=== PATIENT | male | born 1960 | race Caucasian/White ===

== ENCOUNTER 2019-10-12 13:23 | Emergency (ER) | payer BC ==
--- NOTE | 2019-10-12 15:55 | RAD REPORT ---
EXAM DESCRIPTION: CTAbdomen Pelvis W Contrast - 10/12/2019 3:41 pm CLINICAL HISTORY: Abdominal pain. swelling to right, lateral abd;Abd pain COMPARISON: No comparisons TECHNIQUE: Biphasic CT imaging of the abdomen and pelvis was performed with 100 ml non-ionic IV cont rast. All CT scans are performed using dose optimization technique as appropriate and may include automated exposure control or mA/KV adjustment according to patient size. FINDINGS: The lung bases are clear.Small stomach diverticulum along the fundus of the stomach. The liver, spleen, pancreas, adrenal glands and kidneys are within normal limits. 3 cm duodenal diver ticulum noted. 2 cm right renal cyst. No bowel obstruction, free air, free fluid or abscess. The appendix is normal. Postsurgical changes in the left inguinal region with small fat containing left inguinal hernia. No evidence of significan t lymphadenopathy. Lumbosacral degenerative changes. IMPRESSION: No acute intra-abdominal or pelvic finding.
--- NOTE | 2019-10-12 16:12 | EDPHYS ---
Physician Documentation [facility] Name: Jose Alvarez Age: 59 yrs Sex: Male : 1960 Arrival Date: 10/12/2019 Time: 13:25 Bed 14 Private MD: ED Physician Eliazar Ramsey HPI: 10/12 15:00 This 59 yrs old Male presents to ER via Ambulatory with complaints of kb Abdominal Swelling. 15:00 The patient presents with abdominal pain right lateral abd. Onset: The symptoms/episode kb began/occurred 3 day(s) ago. The symptoms do not radiate. Associated signs and symptoms: none. The symptoms are described as constant. Modifying factors: The symptoms are alleviated by nothing, the symptoms are aggravated by nothing. Severity of pain: At its worst the pain was moderate in the emergency department the pain is unchanged. The patient has not experienced similar symptoms in the past. The patient has not recently seen a physician. Pt reports right lateral abd pain for 3 days, this morning the area is swollen. Denies tenderness, fever, n/v. States he has intermittent diarrhea due to metformin. . Historical: - Allergies: 13:41 No Known Allergies; aj1 - Home Meds: 13:41 Metformin Oral [Active]; glambie [Active]; aj1 - PMHx: 13:41 Diabetes - NIDDM; aj1 - Immunization history:: Flu vaccine is not up to date. - Social history:: Smoking status: Patient/guardian denies using tobacco. - Ebola Screening: : Patient denies travel to an Ebola-affected area in the 21 days before illness onset. ROS: 14:59 Constitutional: Negative for fever, chills, and weight loss, Neck: Negative for injury, kb pain, and swelling, Cardiovascular: Negative for chest pain, palpitations, and edema, Respiratory: Negative for shortness of breath, cough, wheezing, and pleuritic chest pain, Back: Negative for injury and pain, : Negative for injury, bleeding, discharge, and swelling, MS/Extremity: Negative for injury and deformity, Skin: Negative for injury, rash, and discoloration, Neuro: Negative for headache, weakness, numbness, tingling, and seizure. 14:59 Abdomen/GI: Positive for abdominal pain, abdominal distension. Exam: 14:59 Constitutional: This is a well developed, well nourished patient who is awake, alert, kb and in no acute distress. Head/Face: Normocephalic, atraumatic. Neck: Trachea midline, no thyromegaly or masses palpated, and no cervical lymphadenopathy. Supple, full range of motion without nuchal rigidity, or vertebral point tenderness. No Meningismus. Chest/axilla: Normal chest wall appearance and motion. Nontender with no deformity. No lesions are appreciated. Cardiovascular: Regular rate and rhythm with a normal S1 and S2. No gallops, murmurs, or rubs. Normal PMI, no JVD. No pulse deficits. Respiratory: Lungs have equal breath sounds bilaterally, clear to auscultation and percussion. No rales, rhonchi or wheezes noted. No increased work of breathing, no retractions or nasal flaring. Back: No spinal tenderness. No costovertebral tenderness. Full range of motion. Skin: Warm, dry with normal turgor. Normal color with no rashes, no lesions, and no evidence of cellulitis. MS/ Extremity: Pulses equal, no cyanosis. Neurovascular intact. Full, normal range of motion. Neuro: Awake and alert, GCS 15, oriented to person, place, time, and situation. Cranial nerves II-XII grossly intact. Motor strength 5/5 in all extremities. Sensory grossly intact. Cerebellar exam normal. Normal gait. 14:59 Abdomen/GI: Inspection: distension, that is moderate, in the anterior aspect of right lateral abdomen, Bowel sounds: normal, in all quadrants, Palpation: abdomen is soft and non-tender, in all quadrants. Vital Signs: 13:41 BP 144 / 89; Pulse 76; Resp 18; Temp 98.3; Pulse Ox 98% on R/A; Weight 95.25 kg (R); aj1 Height 5 ft. 10 in. (177.80 cm) (R); Pain 8/10; 15:05 BP 141 / 76; Pulse 73; Resp 18; Pulse Ox 95% on R/A; ae4 16:34 BP 125 / 66; Pulse 76; Resp 18; Pulse Ox 98% on R/A; ae4 13:41 Body Mass Index 30.13 (95.25 kg, 177.80 cm) aj1 MDM: 13:51 Patient medically screened. kb 14:59 Data reviewed: vital signs, nurses notes. Data interpreted: Pulse oximetry: on room air kb is 98 %. Interpretation: normal. 16:11 Counseling: I had a detailed discussion with the patient and/or guardian regarding: the kb historical points, exam findings, and any diagnostic results supporting the discharge/admit diagnosis, lab results, radiology results, the need for outpatient follow up, a family practitioner, to return to the emergency department if symptoms worsen or persist or if there are any questions or concerns that arise at home. 16:12 ED course: After discussing findings with pt he reports he did have a similar pain in kb the same spot a while back that resolved after muscle relaxers. 10/12 14:37 Order name: Creatinine for Radiology; Complete Time: 15:26 kb 10/12 14:37 Order name: CT Abd/Pelvis - IV Contrast Only; Complete Time: 16:06 kb 10/12 14:37 Order name: IV Start; Complete Time: 15:04 kb Administered Medications: No medications were administered Disposition: 10/12/19 16:11 Discharged to Home. Impression: Unspecified abdominal pain - right lateral pain. - Condition is Stable. - Discharge Instructions: Abdominal Pain, Adult, [id number]. - Prescriptions for Cyclobenzaprine 10 mg Oral Tablet - take 1 tablet by ORAL route every 8 hours As needed; 30 tablet. Diclofenac Sodium 75 mg Oral Tablet, Delayed Release (E.C.) - take 1 tablet by ORAL route 2 times per day As needed; 30 tablet. - Medication Reconciliation Form, Thank You Letter, Antibiotic Education, Prescription Opioid Use, Work release form form. - Follow up: Emergency Department; When: As needed; Reason: Worsening of condition. Follow up: Private Physician; When: 2 - 3 days; Reason: Recheck today's complaints, Continuance of care, Re-evaluation by your physician. Addendum: 10/15/2019 06:44 Co-signature as Attending Physician, Eliazar Ramsey MD I agree with the assessment and c mendez plan of care. Signatures: Dispatcher [employer] EDFlor Ybarra, CORROSION CONTROL FITTER-C CORROSION CONTROL FITTER-Shaylee Dumont, RN RN aj1 Eliazar Ramsey MD MD cha Elliott, Andrea, RN RN ae4 Corrections: (The following items were deleted from the chart) 10/12 16:39 16:11 10/12/2019 16:11 Discharged to Home. Impression: Unspecified abdominal pain - ae4 right lateral pain. Condition is Stable. Forms are Medication Reconciliation Form, Thank You Letter, Antibiotic Education, Prescription Opioid Use. Follow up: Emergency Department; When: As needed; Reason: Worsening of condition. Follow up: Private Physician; When: 2 - 3 days; Reason: Recheck today's complaints, Continuance of care, Re-evaluation by your physician. kb
--- NOTE | 2019-10-12 16:12 | ER ---
Nurse's Notes [facility] Name: Jose Alvarez Age: 59 yrs Sex: Male : 1960 Arrival Date: 10/12/2019 Time: 13:25 Bed 14 Private MD: Diagnosis: Unspecified abdominal pain-right lateral pain Presentation: 10/12 13:39 Presenting complaint: Patient states: Pain to right flank for the last 3 days. Denies aj1 urinary symptoms. Denies fever. Denies N/V. Reports occasional diarrhea. Transition of care: patient was not received from another setting of care. Onset of symptoms was 2018. Risk Assessment: Do you want to hurt yourself or someone else? Patient reports no desire to harm self or others. Initial Sepsis Screen: Does the patient meet any 2 criteria? No. Patient's initial sepsis screen is negative. Does the patient have a suspected source of infection? Yes: Acute abdominal pain. Care prior to arrival: None. 13:39 Method Of Arrival: [facility] 13:39 Acuity: [facility] 3 aj1 Triage Assessment: 13:41 General: Appears in no apparent distress. uncomfortable, Behavior is calm, cooperative, aj1 appropriate for age. Pain: Pain currently is 8 out of 10 on a pain scale. Neuro: Level of Consciousness is awake, alert, obeys commands. Cardiovascular: Patient's skin is warm and dry. Respiratory: Airway is patent Respiratory effort is even, unlabored, Respiratory pattern is regular, symmetrical. GI: Patient currently denies vomiting. Historical: - Allergies: 13:41 No Known Allergies; aj1 - Home Meds: 13:41 Metformin Oral [Active]; glambie [Active]; aj1 - PMHx: 13:41 Diabetes - NIDDM; aj1 - Immunization history:: Flu vaccine is not up to date. - Social history:: Smoking status: Patient/guardian denies using tobacco. - Ebola Screening: : Patient denies travel to an Ebola-affected area in the 21 days before illness onset. Screenin:05 Abuse screen: Denies threats or abuse. Nutritional screening: No deficits noted. ae4 Tuberculosis screening: No symptoms or risk factors identified. Fall Risk None identified. Assessment: 15:07 General: Appears in no apparent distress. comfortable, well groomed, Behavior is calm, ae4 cooperative. Pain: Complains of pain in anterior aspect of right lateral abdomen and posterior aspect of right lateral abdomen. Cardiovascular: 15:07 GI: Bowel sounds present X 4 quads. Abd is soft and non tender X 4 quads. Tenderness to ae4 right side. 15:07 Neuro: Level of Consciousness is awake, alert, obeys commands, Oriented to person, ae4 place, time, situation. 15:07 Respiratory: Airway is patent Respiratory effort is even, unlabored, Respiratory ae4 pattern is regular, symmetrical, Breath sounds are clear bilaterally. GI: Reports diarrhea, Patient reports he has regular diarrhea due to his "metformin". : No signs and/or symptoms were reported regarding the genitourinary system. Denies burning with urination, pain urinary frequency. EENT: Presence of nystagmus, patient states he "was born with it.". Derm: Skin is pink, warm \\T\\ dry. Musculoskeletal: Swelling, protrusion to right latera aspect of abdomen. Swelling. Vital Signs: 13:41 BP 144 / 89; Pulse 76; Resp 18; Temp 98.3; Pulse Ox 98% on R/A; Weight 95.25 kg (R); aj1 Height 5 ft. 10 in. (177.80 cm) (R); Pain 8/10; 15:05 BP 141 / 76; Pulse 73; Resp 18; Pulse Ox 95% on R/A; ae4 16:34 BP 125 / 66; Pulse 76; Resp 18; Pulse Ox 98% on R/A; ae4 13:41 Body Mass Index 30.13 (95.25 kg, 177.80 cm) aj1 ED Course: 13:25 Patient arrived in ED. as 13:40 Triage completed. aj1 13:41 Arm band placed on Patient placed in an exam room. aj1 13:47 Anders Ugalde, EVELIA is Primary Nurse. ae4 13:51 Flor Suarez FNP-C is PHCP. kb 13:51 Eliazar Ramsey MD is Attending Physician. kb 14:30 Inserted saline lock: 18 gauge in right antecubital area, using aseptic technique. ae4 Blood collected. 15:01 Radiology exam delayed due to lab results not completed at this time. (BUN/Creatinine) bq IV insertion attempt and/or patient not having appropriate IV at this time. 15:06 Placed in gown. Bed in low position. Call light in reach. Side rails up X 1. Adult w/ ae4 patient. water pump installer on. Pulse ox on. 15:40 CT completed. Patient tolerated procedure well. Patient moved back from CT. bq 15:41 CT Abd/Pelvis - IV Contrast Only In Process Unspecified. EDMS 16:36 No provider procedures requiring assistance completed. IV discontinued, intact, ae4 bleeding controlled, No redness/swelling at site. Pressure dressing applied. Administered Medications: No medications were administered Outcome: 16:11 Discharge ordered by . kb 16:36 Discharged to home ambulatory. ae4 16:36 Condition: stable 16:36 Discharge instructions given to patient, significant other, Instructed on discharge instructions, follow up and referral plans. Demonstrated understanding of instructions, Prescriptions given X 2. 16:39 Patient left the ED. ae4 Signatures: Dispatcher [employer] EDSD Flor Suarez, TREE KILLER-C NUPUR-Shaylee Dumont RN RN aj1 Neeta Cunha Amelia as Anders Ugalde, EVELIA RN ae4 Corrections: (The following items were deleted from the chart) 18:08 15:07 Neuro: Level of Consciousness is awake, alert, obeys commands, Oriented to ae4 person, place, time, situation, ae4
[2019-10-12 17:38] VITALS: TEMP 98.3
[2019-10-12 17:41] VITALS: BP 125/66; O2SAT 98
== END 2019-10-12 16:39 | disposition home or self-care (01) ==
LOC: ER 13:23
DX: R10.9 Unspecified abdominal pain (principal); E11.9 Type 2 diabetes mellitus without complications
CPT/HCPCS: 36415; 74177; 99285; Q9967

== ENCOUNTER 2023-01-16 07:04 | Inpatient (IN) | payer BC ==
[2023-01-16] MEDS ORDERED: MORPHINE 4 MG/ML SYR ONE (07:24)
[2023-01-16] MEDS ORDERED: FAMOTIDINE 20 MG/2 ML VIAL IV ONE (07:25)
[2023-01-16] MEDS ORDERED: NA CHLORIDE 0.9% 1,000 ML ONE (07:25)
[2023-01-16] MEDS ORDERED: ONDANSETRON 4 MG/2 ML VIAL ONE (07:26)
[2023-01-16 07:45] LABS: Absolute Lymphocytes (CBC) 0.7 K/uL (0.7-4.9); Hematocrit 37.5 % (39.6-49.0); Lymphocytes % 6.3 % (15.3-44.8); MPV 7.3 fL (7.6-11.3); RBC Red Blood Cell Count 4.17 M/uL (4.33-5.43)
[2023-01-16 08:02] LABS: Protime INR 1.11
[2023-01-16 08:09] LABS: Albumin 2.8 g/dL (3.4-5.0); Bilirubin Direct 0.2 mg/dL (0-0.2); Bilirubin Total 0.7 mg/dL (0.2-1.0); Magnesium 2.5 mg/dL (1.6-2.4); Potassium 3.5 mmol/L (3.5-5.1); Protein, Total 7.7 g/dL (6.4-8.2); Troponin High Sensitivity 8.5 pg/mL (<58.9)
--- NOTE | 2023-01-16 08:40 | RAD REPORT ---
EXAM DESCRIPTION: CT - Abdomen Pelvis W Contrast - 01/16/2023 8:27 am CLINICAL HISTORY: Abdominal pain COMPARISON: 2019 TECHNIQUE: Computed axial tomography of the abdomen pelvis was obtained. 100 cc Isovue-300 was admin istered intravenously. Oral contrast was not requested which limits evaluation of bowel and appendix All CT scans are performed using dose optimization technique as appropriate and may include automated exposure control or mA/KV adjustment according to patient size. FINDINGS: Moderate left lower lobe consolidation The liver, spleen, pancreas, adrenal and left kidney unremarkable. 3 centimeter right renal cyst There is no evidence of diverticulitis. Postsurgical changes left inguinal hernia repair. Small gastric diverticulum. Small duodenal divertic ulum IMPRESSION: Left lower lobe consolidation likely pneumonia
--- NOTE | 2023-01-16 08:41 | RAD REPORT ---
EXAM DESCRIPTION: Katia Single View01/16/2023 8:31 am CLINICAL HISTORY: Abdominal pain COMPARISON: 2020 FINDINGS: Left lower lobe opacities Right lung appears clear of acute infiltrate. The heart is normal size IMPRESSION: Left lower lobe opacities likely pneumonia
[2023-01-16 09:00] LABS: Urine Blood 1+ (Negative); Urine Glucose 2+ (Negative); Urine Protein Negative (Negative); Urine Specific Gravity <=1.005 (1.005-1.030); Urine pH 5.5 (5.0-7.0)
[2023-01-16] MEDS ORDERED: NA CHLORIDE 0.9% 750 ML ONE (09:35)
[2023-01-16] MEDS ORDERED: VANCOMYCIN 1 GM/VIAL ONE (09:35)
[2023-01-16] MEDS ORDERED: VANCOMYCIN 500 MG/VIAL ONE (09:35)
[2023-01-16] MEDS ORDERED: AZITHROMYCIN 500 MG INJ IVPB ONE (09:35)
[2023-01-16] MEDS ORDERED: CEFTRIAXONE 2000 MG/VIAL ONE (09:35)
--- NOTE | 2023-01-16 09:47 | RAD REPORT ---
EXAM DESCRIPTION: CT - Head C Spine Mpr Wo Con - 01/16/2023 9:33 am CLINICAL HISTORY: Head and neck pain COMPARISON: None. TECHNIQUE: Computed axial tomography of the head and cervical spine was obtained. Sagittal and coronal reconstruction was performed. All CT scans are performed using dose optimization technique as appropriate and may include automated exposure control or mA/KV adjustment according to patient size. FINDINGS: An intracranial bleed is not seen. The ventricles are normal in caliber. No significant hypodensity within the brain. An extra-axial fluid collection is not noted. Fluid within the visualized sinuses and mastoids is not seen A cervical fracture is not visualized. No dislocation is noted. Spondylosis cervical spine results in mild to moderate multilevel foraminal stenosis. No high-grade c entral spinal stenosis seen. IMPRESSION: No acute intracranial abnormality is seen. A cervical fracture is not visualized. If the patient continues to have symptoms to suggest intracranial /spinal cord/ spinal canal patholog y then MRI would be recommended
--- NOTE | 2023-01-16 12:34 | EKG ---
Test Date: 2023-01-16 Test Time: 07:49:28 Mailer Apprentice: OC MEASUREMENT RESULTS: Intervals: Rate: 81 AR: 156 QRSD: 118 QT: 404 QTc: 469 Floyd: P: 37 AR: 156 QRS: -48 T: 66 INTERPRETIVE STATEMENTS: Normal sinus rhythm Left anterior fascicular block Abnormal ECG Compared to ECG 01/16/2023 07:48:12 Left anterior fascicular block now present Right superior axis no longer present Intraventricular conduction delay no longer present ST (T wave) deviation no longer present Electronically Signed On 01-16-23 12:34:27 BILLING ADMINISTRATOR by Jey Askew
--- NOTE | 2023-01-16 12:52 | ER ---
Nurse's Notes [facility] Name: Jose Alvarez Age: 62 yrs Sex: Male : 1960 Arrival Date: 01/16/2023 Time: 07:10 Bed 18 Private MD: Aaron Bethea T Diagnosis: Fever, unspecified;Headache;Meningitis, unspecified;Pneumonia due to other specified bacteria-left lober lobe pneumonia;Spondylolysis, cervical region Presentation: 01/16 07:38 Chief complaint: Patient states: I have been sick since Monday with a fever of ko1 103.5-104.1 I was having chills and body aches and those stopped on Monday. I went to urgent care and they gave me a zpack and tylenol with codeine, tested me for covid and flu which were both negative. I have a terrible headache and my neck hurts. Coronavirus screen: At this time, the client does not indicate any symptoms associated with coronavirus-19. Ebola Screen: No symptoms or risks identified at this time. Initial Sepsis Screen: Does the patient meet any 2 criteria? No. Patient's initial sepsis screen is negative. Does the patient have a suspected source of infection? No. Patient's initial sepsis screen is negative. Risk Assessment: Do you want to hurt yourself or someone else? Patient reports no desire to harm self or others. Onset of symptoms is unknown. 07:38 Method Of Arrival: Ambulatory ko1 07:38 Acuity: MINH 3 ko1 Triage Assessment: 07:57 General: Appears in no apparent distress. uncomfortable, Behavior is calm, cooperative, ko1 appropriate for age. Pain: Complains of pain in forehead. GI: No deficits noted. Historical: - Allergies: 07:57 No Known Allergies; ko1 - Immunization history:: Adult Immunizations up to date. - Social history:: Smoking status: Patient denies any tobacco usage or history of. Screenin:00 [facility] ED Fall Risk Assessment (Adult) History of falling in the last 3 months, ko1 including since admission No falls in past 3 months (0 pts) Confusion or Disorientation No (0 pts) Intoxicated or Sedated No (0 pts) Impaired Gait No (0 pts) Mobility Assist Device Used No (0 pt) Altered Elimination No (0 pt) Score/Fall Risk Level 0 - 2 = Low Risk Oriented to surroundings, Maintained a safe environment, Educated pt \T\ family on fall prevention, incl call for assistance when getting out of bed, Assessed \T\ reinforced patient's understanding of fall precautions, Provided non-skid footwear, Hourly rounding (assess needs \T\ fall precautionary measures) done, Used ambulatory aids as needed (educated on \T\ assisted with), Used gait belt as appropriate. Abuse screen: Denies threats or abuse. Denies injuries from another. Nutritional screening: No deficits noted. Tuberculosis screening: No symptoms or risk factors identified. Assessment: 07:30 General: Appears in no apparent distress. uncomfortable, Behavior is calm, cooperative, ko1 appropriate for age. Pain: Complains of pain in back of neck. Neuro: No deficits noted. Cardiovascular: No deficits noted. Respiratory: No deficits noted. GI: Bowel sounds present X 4 quads. Abd is soft and non tender X 4 quads. : No deficits noted. EENT: No deficits noted. Derm: No deficits noted. Musculoskeletal: No deficits noted. 12:50 Reassessment: Received report from EVELIA Wong. mb9 13:05 General: Appears in no apparent distress. Behavior is calm, cooperative, appropriate mb9 for age. Pain: Complains of pain in back of neck Aggravated by repositioning. Neuro: Level of Consciousness is awake, alert, obeys commands, Oriented to person, place, time, situation, Appropriate for age. Respiratory: Airway is patent Respiratory effort is even, unlabored, Respiratory pattern is regular, symmetrical. Derm: Skin is pink, warm \T\ dry. Musculoskeletal: Range of motion: intact in all extremities. 15:29 Reassessment: No changes from previously documented assessment. Patient and/or family mb9 updated on plan of care and expected duration. Pain level reassessed. Patient is alert, oriented x 3, equal unlabored respirations, skin warm/dry/pink. Vital Signs: 07:30 BP 131 / 72; Pulse 81; Resp 18; Pulse Ox 99% ; ko1 07:38 BP 131 / 72; Pulse 81; Resp 18; Temp 98.1(O); Pulse Ox 96% on R/A; ko1 08:00 BP 128 / 71; Pulse 80; Resp 18; Pulse Ox 96% ; ko1 13:00 BP 145 / 76; Pulse 78; Resp 16; Pulse Ox 98% on R/A; mb9 14:00 BP 142 / 66; Pulse 81; Resp 18; Pulse Ox 100% ; mb9 15:26 BP 135 / 79; Pulse 78; Resp 16; Pulse Ox 100% ; mb9 ED Course: 07:10 Patient arrived in ED. mr 07:11 Aaron Bethea MD is Private Physician. mr 07:13 Eliazar Ramsey MD is Attending Physician. sharri 07:16 Judith Nixon RN is Primary Nurse. ko1 07:30 Inserted saline lock: 20 gauge in right antecubital area, using aseptic technique. ko1 Blood collected. 07:36 Lipase Sent. ko1 07:36 Basic Metabolic Panel Sent. ko1 07:36 CBC with Diff Sent. ko1 07:37 LFT's Sent. ko1 07:37 Magnesium Sent. ko1 07:37 NT PRO-BNP Sent. ko1 07:37 PT-INR Sent. ko1 07:37 Troponin HS Sent. ko1 07:57 Triage completed. ko1 07:57 Arm band placed on right wrist. ko1 08:00 Patient has correct armband on for positive identification. Placed in gown. Bed in low ko1 position. Call light in reach. Client placed on continuous cardiac and pulse oximetry monitoring. NIBP monitoring applied. ekg monitor on. 09:26 Lactate w/ 2H reflex if indic. Sent. ko1 09:55 Blood Culture Adult (2) Sent. ko1 12:46 Jese Mon MD is Hospitalizing Provider. sharri 18:00 SARS RAPID Sent. mb9 Administered Medications: 07:36 Drug: Zofran (Ondansetron) 4 mg Route: IVP; Site: right antecubital; ko1 07:36 Drug: NS 0.9% 1000 ml Route: IV; Rate: 1 bolus; Site: right antecubital; ko1 07:40 Drug: Pepcid (famotidine) 20 mg Route: IVP; Site: right antecubital; ko1 07:45 Drug: morphine 4 mg Route: IVP; Infused Over: 4 mins; Site: right antecubital; ko1 09:04 Drug: NS 0.9% 1000 ml Route: IV; Rate: 1 bolus; Site: right antecubital; ko1 09:59 Drug: Rocephin (cefTRIAXone) 2 grams Route: IV; Rate: per protocol; Site: right ko1 antecubital; 11:15 Drug: Zithromax (azithromycin) 500 mg Route: IVPB; Infused Over: 1 hrs; Site: right ko1 antecubital; 12:15 Drug: vancoMYCIN 1.5 grams Route: IVPB; Rate: calculated rate; Site: right antecubital; ko1 12:15 Drug: NS 0.9% 1000 ml Route: IV; Rate: 125 ml/hr; Site: right antecubital; ko1 17:58 Drug: Decadron - Dexamethasone 10 mg Route: IVP; Site: right antecubital; mb9 Outcome: 12:52 Decision to Hospitalize by Provider. sharri 21:37 Patient left the ED. mb9 Signatures: Eliazar Ramsey MD MD cha Rivera, Mary mr Oliver, Kathy, RN RN koKatelyn Luke RN RN mb9 Corrections: (The following items were deleted from the chart) 07:57 07:57 PMHx: Diabetes - NIDDM; ko1 ko1
--- NOTE | 2023-01-16 12:52 | EDPHYS ---
Physician Documentation [facility] Name: Jose Alvarez Age: 62 yrs Sex: Male : 1960 Arrival Date: 01/16/2023 Time: 07:10 Bed 18 Private MD: Aaron Bethea T ED Physician Eliazar Ramsey HPI: 01/16 12:40 This 62 yrs old Male presents to ER via Ambulatory with complaints of sharri Abdominal Pain, Stiff Neck. 12:40 The patient or guardian complains of decreased range of motion, pain. The symptoms are sharri located diffusely. Onset: The symptoms/episode began/occurred 3 day(s) ago. Context: The problem was sustained at an unknown location. Associated signs and symptoms: Pertinent positives: fever, headache. The pain does not radiate. Severity of symptoms: At their worst the symptoms were moderate, in the emergency department the symptoms are unchanged. The patient has not experienced similar symptoms in the past. Historical: - Allergies: 07:57 No Known Allergies; ko1 - Immunization history:: Adult Immunizations up to date. - Social history:: Smoking status: Patient denies any tobacco usage or history of. ROS: 12:41 Eyes: Negative for injury, pain, redness, and discharge, ENT: Negative for injury, sharri pain, and discharge, Cardiovascular: Negative for chest pain, palpitations, and edema, Abdomen/GI: Negative for abdominal pain, nausea, vomiting, diarrhea, and constipation, Back: Negative for injury and pain, : Negative for injury, bleeding, discharge, and swelling, MS/Extremity: Negative for injury and deformity, Skin: Negative for injury, rash, and discoloration, Neuro: Negative for headache, weakness, numbness, tingling, and seizure, Psych: Negative for depression, anxiety, suicide ideation, homicidal ideation, and hallucinations, Allergy/Immunology: Negative for hives, rash, and allergies, Endocrine: Negative for neck swelling, polydipsia, polyuria, polyphagia, and marked weight changes, Hematologic/Lymphatic: Negative for swollen nodes, abnormal bleeding, and unusual bruising. 12:41 Constitutional: Positive for body aches, chills, fatigue, fever, malaise. 12:41 Neck: Positive for pain with movement, pain at rest, tenderness. 12:41 Respiratory: Positive for cough, shortness of breath, at rest. Exam: 12:41 Head/Face: Normocephalic, atraumatic. Eyes: Pupils equal round and reactive to light, sharri extra-ocular motions intact. Lids and lashes normal. Conjunctiva and sclera are non-icteric and not injected. Cornea within normal limits. Periorbital areas with no swelling, redness, or edema. Neck: Trachea midline, no thyromegaly or masses palpated, and no cervical lymphadenopathy. Supple, full range of motion without nuchal rigidity, or vertebral point tenderness. No Meningismus. Chest/axilla: Normal chest wall appearance and motion. Nontender with no deformity. No lesions are appreciated. Cardiovascular: Regular rate and rhythm with a normal S1 and S2. No gallops, murmurs, or rubs. Normal PMI, no JVD. No pulse deficits. Respiratory: Lungs have equal breath sounds bilaterally, clear to auscultation and percussion. No rales, rhonchi or wheezes noted. No increased work of breathing, no retractions or nasal flaring. Abdomen/GI: Soft, non-tender, with normal bowel sounds. No distension or tympany. No guarding or rebound. No evidence of tenderness throughout. Back: No spinal tenderness. No costovertebral tenderness. Full range of motion. Male : Normal genitalia with no discharge or lesions. Skin: Warm, dry with normal turgor. Normal color with no rashes, no lesions, and no evidence of cellulitis. MS/ Extremity: Pulses equal, no cyanosis. Neurovascular intact. Full, normal range of motion. Neuro: Awake and alert, GCS 15, oriented to person, place, time, and situation. Cranial nerves II-XII grossly intact. Motor strength 5/5 in all extremities. Sensory grossly intact. Cerebellar exam normal. Normal gait. Psych: Awake, alert, with orientation to person, place and time. Behavior, mood, and affect are within normal limits. 12:41 Cardiovascular: Rate: normal, Rhythm: regular, Pulses: no pulse deficits are appreciated, Heart sounds: normal, Edema: is not appreciated, JVD: is not appreciated. 12:41 ECG was reviewed by the Attending Physician. Vital Signs: 07:30 BP 131 / 72; Pulse 81; Resp 18; Pulse Ox 99% ; ko1 07:38 BP 131 / 72; Pulse 81; Resp 18; Temp 98.1(O); Pulse Ox 96% on R/A; ko1 08:00 BP 128 / 71; Pulse 80; Resp 18; Pulse Ox 96% ; ko1 13:00 BP 145 / 76; Pulse 78; Resp 16; Pulse Ox 98% on R/A; mb9 14:00 BP 142 / 66; Pulse 81; Resp 18; Pulse Ox 100% ; mb9 15:26 BP 135 / 79; Pulse 78; Resp 16; Pulse Ox 100% ; mb9 Procedures: 12:43 Lumbar Puncture: Patient placed in left lateral decubitus position. Collected 20 ml's sharri of clear fluid. Puncture site dressed with band aid, Patient tolerated well. MDM: 07:13 Patient medically screened. sharri 12:43 Antibiotic administration: Rocephin and Zithromax given, vancomycin. Differential sharri diagnosis: bacterial meningitis, Cervical Spondylosis Anemia cervical strain, fracture, Herpes Zoster Neck Contusion. Immunization status: Influenza vaccine: within last 5 years. Data reviewed: vital signs, nurses notes, lab test result(s), EKG, radiologic studies, CT scan, plain films. Consideration of Admission/Observation Patient was admitted/placed on observation. Escalation of care including admission/observation considered. I considered the following discharge prescriptions or medication management in the emergency department Medications were administered in the Emergency Department. See MAR. Test considered but Not performed: CT: ct of chest. Historians other than the Patient: Daughter/Son: son. 01/16 07:15 Order name: Basic Metabolic Panel 01/16 07:15 Order name: CBC with Diff 01/16 07:15 Order name: LFT's [facility] 01/16 07:15 Order name: Magnesium [facility] 01/16 07:15 Order name: NT PRO-BNP [facility] 01/16 07:15 Order name: PT-INR [facility] 01/16 07:15 Order name: Troponin HS [facility] 01/16 07:15 Order name: Lipase [facility] 01/16 07:47 Order name: CBC with Automated Diff; Complete Time: 08:48 EDMS 01/16 08:02 Order name: Protime (+INR); Complete Time: 08:48 EDMS 01/16 08:10 Order name: Basic Metabolic Panel; Complete Time: 08:48 EDMS 01/16 08:10 Order name: Liver (Hepatic) Function; Complete Time: 08:48 EDMS 01/16 08:10 Order name: Troponin High Sensitivity; Complete Time: 08:48 EDMS 01/16 08:10 Order name: NT PRO-BNP; Complete Time: 08:48 EDMS 01/16 08:10 Order name: Magnesium; Complete Time: 08:48 EDMS 01/16 08:10 Order name: Lipase; Complete Time: 08:48 EDMS 01/16 08:55 Order name: Blood Culture Adult (2) [facility] 01/16 08:55 Order name: Lactate w/ 2H reflex if indic. [facility] 01/16 08:55 Order name: Spinal Fluid Profile [facility] 01/16 09:00 Order name: Urine Dipstick-Ancillary; Complete Time: 09:49 EDMS 01/16 09:55 Order name: Lactate w/ 2H reflex if indic.; Complete Time: 11:23 EDCA 01/16 14:52 Order name: CSF Glucose; Complete Time: 18:44 EDMS 01/16 15:17 Order name: Glucose, Ancillary Testing; Complete Time: 15:23 EDCA 01/16 16:15 Order name: SARS RAPID 01/16 16:55 Order name: Body Fluid Cell Count; Complete Time: 18:44 EDMS 01/16 17:38 Order name: Glucose, Ancillary Testing; Complete Time: 18:44 EDCA 01/16 18:25 Order name: SARS-COV-2 Antigen Rapid; Complete Time: 18:44 EDCA 01/16 19:41 Order name: CSF Culture [facility] 01/16 20:34 Order name: Phosphorus [facility] 01/16 20:34 Order name: Lipid Profile [facility] 01/16 07:15 Order name: XRAY Chest (1 view) [facility] 01/16 07:15 Order name: EKG; Complete Time: 07:16 [facility] 01/16 07:15 Order name: Cardiac monitoring; Complete Time: 07:37 [facility] 01/16 07:15 Order name: EKG - Nurse/Tech; Complete Time: 08:02 [facility] 01/16 07:15 Order name: IV Saline Lock; Complete Time: 08:02 [facility] 01/16 07:15 Order name: Labs collected and sent; Complete Time: 07:37 [facility] 01/16 07:15 Order name: O2 Per Protocol; Complete Time: 07:37 [facility] 01/16 07:15 Order name: O2 Sat Monitoring; Complete Time: 07:37 [facility] 01/16 07:15 Order name: Urine Dipstick-Ancillary (obtain specimen); Complete Time: 09:00 [facility] 01/16 07:15 Order name: CT Abd/Pelvis - IV Contrast Only [facility] 01/16 08:41 Order name: CT; Complete Time: 08:48 EDMS 01/16 08:41 Order name: RAD; Complete Time: 08:48 EDMS 01/16 08:55 Order name: Lumbar Puncture Consent; Complete Time: 13:04 [facility] 01/16 08:55 Order name: Lumbar Puncture Setup; Complete Time: 09:04 [facility] 01/16 09:27 Order name: CT Head C Spine [facility] 01/16 09:48 Order name: CT; Complete Time: 09:49 EDMS 01/16 17:53 Order name: MRI; Complete Time: 18:44 EDMS 01/16 20:34 Order name: T4 Free EDMS 01/16 20:34 Order name: Magnesium EDMS 01/16 20:34 Order name: Thyroid Stimulating Hormone EDMS 01/16 21:19 Order name: Hemoglobin A1c EDMS EC:41 Rate is 81 beats/min. Rhythm is regular. QRS [place] is Normal. [place] interval is normal. QRS sharri interval is normal. QT interval is normal. No Q waves. T waves are Normal. No ST changes noted. Clinical impression: NSR w/ Non-specific ST/T Changes and No evidence of ischemia. Interpreted by me. Reviewed by me. Administered Medications: 07:36 Drug: Zofran (Ondansetron) 4 mg Route: IVP; Site: right antecubital; ko1 07:36 Drug: NS 0.9% 1000 ml Route: IV; Rate: 1 bolus; Site: right antecubital; ko1 07:40 Drug: Pepcid (famotidine) 20 mg Route: IVP; Site: right antecubital; ko1 07:45 Drug: morphine 4 mg Route: IVP; Infused Over: 4 mins; Site: right antecubital; ko1 09:04 Drug: NS 0.9% 1000 ml Route: IV; Rate: 1 bolus; Site: right antecubital; ko1 09:59 Drug: Rocephin (cefTRIAXone) 2 grams Route: IV; Rate: per protocol; Site: right ko1 antecubital; 11:15 Drug: Zithromax (azithromycin) 500 mg Route: IVPB; Infused Over: 1 hrs; Site: right ko1 antecubital; 12:15 Drug: vancoMYCIN 1.5 grams Route: IVPB; Rate: calculated rate; Site: right antecubital; ko1 12:15 Drug: NS 0.9% 1000 ml Route: IV; Rate: 125 ml/hr; Site: right antecubital; ko1 17:58 Drug: Decadron - Dexamethasone 10 mg Route: IVP; Site: right antecubital; mb9 Disposition Summary: 01/16/23 12:52 Hospitalization Ordered Hospitalization Status: Inpatient Admission sharri Provider: Jese Mon cha Condition: Fair sharri Problem: new sharri Symptoms: have improved sharri Bed/Room Type: Standard [facility] Location: Telemetry/MedSurg (Inpatient)(01/16/23 21:23) cg Room Assignment: [facility](01/16/23 21:23) cg Diagnosis - Fever, unspecified sharri - Headache sharri - Meningitis, unspecified sharri - Pneumonia due to other specified bacteria - left lober lobe pneumonia sharri - Spondylolysis, cervical region sharri Forms: - Medication Reconciliation Form sharri - SBAR form sharri Signatures: Dispatcher [employer] EDEliazar Jay MD MD cha Garcia, Cindy RN RN Judith Thomas RN RN ko1 Katelyn Kitchen, RN RN mb9 Corrections: (The following items were deleted from the chart) 07:57 07:57 PMHx: Diabetes - NIDDM; ko1 ko1 20:41 12:52 Telemetry/MedSurg (Inpatient) sharri cg 20:41 12:52 sharri cg 21: 20:41 [facility] ER HOLD cg cg 21:23 20:41 ERHOLD- cg cg
[2023-01-16] MEDS ORDERED: LIDOCAINE 1% MPF 30 ML VIAL ONE (12:53)
[2023-01-16] MEDS ORDERED: HYDROCODONE/APAP 10/325 TAB PO PRN (14:01)
[2023-01-16] MEDS ORDERED: ACETAMINOPHEN 325 MG TABLET PO PRN (14:01)
[2023-01-16] MEDS ORDERED: ONDANSETRON 4 MG/2 ML VIAL IV PRN (14:01)
[2023-01-16] MEDS ORDERED: ALBUTEROL 2.5 MG/3 ML NEB SOL NEB PRN (14:01)
--- NOTE | 2023-01-16 14:14 | P.HP ---
Certification for Inpatient Patient admitted to: Inpatient With expected LOS: >2 Midnights Patient will require the following post-hospital care: None Practitioner: I am a practitioner with admitting privileges, knowledge of patient current condition, hospital course, and medical plan of care. Services: Services provided to patient in accordance with Admission requirements found in Title 42 Section 412.3 of the Code of Federal Regulations Patient History Date of Service: 01/16/23 Reason for admission: Stiff neck and fever History of Present Illness: Patient is a 62-year-old male with a past medical history significant for DM 2 who presents with complaint of stiff neck onset 3 days ago. Patient reported that he initially started having fever, chills, runny nose, generalized body pains 5 days ago. Patient reported associated signs or symptoms of headache, dyspnea, cough, and nasal congestion. Patient denies any other signs or sympto ms. Symptoms are aggravated or relieved by nothing. Patient decided to present to the hospital for medical evaluation. Of note, patient reported that he tested negative for flu and COVID-19 outpatient. Allergies No Known Allergies Allergy (Verified 12/16/14 09:30) Home Medications: Metformin HCl [Metformin HCl ER] 750 mg PO BID 12/16/14 Azithromycin 250 mg PO DAILY 01/16/23 Empagliflozin [Jardiance] 10 mg PO DAILY 01/16/23 Gabapentin 600 mg PO DAILY 01/16/23 Rosuvastatin Calcium 5 mg PO DAILY 01/16/23 - Past Medical/Surgical History -: HLD -: DM 2 with Neuropathy Past Surgical History: Reviewed- Non-Contributory - Family History Family History: Reviewed- Non-Contributory - Social History Smoking Status: Never smoker Alcohol use: No CD- Drugs: No Caffeine use: Yes Place of Residence: Home Review of Systems General: Fever, Chills, Other (Generalized body pains) Eyes: Unremarkable ENT: Unremarkable Respiratory: Cough, Other (Nasal congestion ) Cardiovascular: Unremarkable Gastrointestinal: Unremarkable Genitourinary: Unremarkable Musculoskeletal: Other (Stiff neck) Integumentary: Unremarkable Neurological: Other (, SHABAZZ) Lymphatics: Unremarkable Physical Examination - Physical Exam General: Alert, In no apparent distress, Oriented x3, Cooperative HEENT: Atraumatic, PERRLA, Mucous membr. moist/pink, EOMI, Sclerae nonicteric Neck: Supple, 2+ carotid pulse no bruit, No LAD, Without JVD or thyroid abnormality Respiratory: Diminished Cardiovascular: Regular rate/rhythm, Normal S1 S2 Capillary refill: <2 Seconds Gastrointestinal: Normal bowel sounds, No tenderness Musculoskeletal: No tenderness Integumentary: No rashes Neurological: Normal speech, Normal tone, Normal affect Lymphatics: No axilla or inguinal lymphadenopathy - Studies Laboratory Data (last 24 hrs) 01/16/23 07:30: PT 12.2, INR 1.11 01/16/23 07:30: WBC 11.80 H, Hgb 12.7 L, Hct 37.5 L, Plt Count 264 01/16/23 07:30: Sodium 132 L, Potassium 3.5, BUN 14, Creatinine 0.73, Glucose 180 H, Magnesium 2.5 H, Total Bilirubin 0.7, AST 24, ALT 45, Alkaline Phosphatase 104, Lipase 50 L Assessment and Plan - Plan -- Pneumonia. Blood cultures pending. Continue antibiotics and O2 therapy as needed. --Suspected meningitis. Lumbar puncture done in the ER. Results pending. Further management based on results. --Headache. Tylenol as needed. --DM2 with neuropathy. BS monitoring with sliding scale insulin. Continue gabapentin for his neuropathy --Hyperlipidemia. Continue statin. --Leukocytosis. Likely secondary to pneumonia. Continue antibiotics. Will reassess levels in a.m. --Anemia of chronic disease. H&H stable. Will continue to monitor hemoglobin and transfuse if less than 7.0. --DVT prophylaxis with Lovenox subQ. Discharge Plan: Home Plan to discharge in: Greater than 2 days - Advance Directives Does patient have a Living Will: No Does patient have a Durable POA for Healthcare: No - Code Status/Comfort Care Code Status Assessed: Yes Physician Review: Patient Assessed, Agree with Above Assessment and Plan Critical Care: No
[2023-01-16 14:51] LABS: CSF Glucose 86 mg/dL (40-70)
[2023-01-16] MEDS: INSULIN -REGULAR HUMAN 50 UNIT/0.5 ML ML SQ SCH ×2 (16:30→21:00)
[2023-01-16 16:34] LABS: Appearance CLEAR (CLEAR); Body Fluid Source CSF; Color of fluid Colorless (COLORLESS)
[2023-01-16 16:54] LABS: Body Fluid WBC 1 /mm^3
[2023-01-16 16:57] LABS: Appearance CLEAR (CLEAR); Body Fluid Source CSF; Color of fluid Colorless (COLORLESS); Fluid Total Volume 1 ml
[2023-01-16 16:58] LABS: Body Fluid WBC 1 /mm^3
[2023-01-16 17:32] VITALS: BMI 29.4
[2023-01-16] MEDS ORDERED: dexAMETHasone 10 MG/ML VIAL ONE (17:48)
--- NOTE | 2023-01-16 17:52 | RAD REPORT ---
EXAM DESCRIPTION: MRI - C Spine Wo Cont- 01/16/2023 5:12 pm CLINICAL HISTORY: looking for discitis. neck pain Neck pain, swelling COMPARISON: Head C Spine Mpr Wo Con dated 01/16/2023 FINDINGS: Cervical vertebral bodies are normal in height and alignment. No suspicious marrow edema or marrow replacing process. No fracture or traumatic subluxation. The craniocervical junction is normal. C2-3 level: Small posterior osteophyte/ disc complex attenuates the anterior subarachnoid space. C3-4 level: Small to moderate posterior osteophyte/ disc complex is present asymmetric to the left. M oderate left uncovertebral and facet spurring narrows the left exit foramen. C4-5 level: 4-5 mm central disc protrusion with small endplate osteophytes noted. There is attenuatio n of the anterior subarachnoid space and subtle contact of the anterior cord. Mild facet and uncovert ebral spurring, greater on the left with moderate left-sided foraminal narrowing. C5-6 level: Small posterior osteophyte/disc complex is present attenuating the anterior subarachnoid space. C6-7 level: No significant findings. C7-T1 level: No significant findings. Cervical cord is normal in size and signal. IMPRESSION: Mild spondylosis mid cervical spine as detailed. Findings appear most prominent at C3-4 as detailed. No acute trauma related finding.
[2023-01-16 18:25] LABS: SARS-CoV-2 Antigen Rapid Res Negative (Negative)
[2023-01-16 20:33] LABS: Magnesium 2.5 mg/dL (1.6-2.4); Phosphorus 3.4 mg/dL (2.5-4.9); Thyroid Stimulating Hormone 0.246 uIU/mL (0.358-3.740)
[2023-01-17 05:39] LABS: Absolute Lymphocytes (CBC) 0.6 K/uL (0.7-4.9); Hematocrit 35.9 % (39.6-49.0); Lymphocytes % 6.8 % (15.3-44.8); MCV 89.4 fL (80-100); MPV 7.4 fL (7.6-11.3); RBC Red Blood Cell Count 4.02 M/uL (4.33-5.43)
[2023-01-17 05:51] LABS: Potassium 4.3 mmol/L (3.5-5.1)
[2023-01-17] MEDS: INSULIN -REGULAR HUMAN 50 UNIT/0.5 ML ML SQ SCH ×4 (07:30→20:03)
[2023-01-17] MEDS: ROSUVASTATIN 10 MG TAB PO SCH (07:44)
[2023-01-17] MEDS: GABAPENTIN 300 MG CAP PO SCH (07:45)
[2023-01-17] MEDS: ASPIRIN 81 MG CHEWABLE TABLET PO SCH (07:48)
[2023-01-17] MEDS ORDERED: dexAMETHasone 4 MG/ML VIAL IV ONE (08:21)
[2023-01-17] MEDS ORDERED: CEFTRIAXONE 1,000 MG in NA CHLORIDE 0.9% 50 ML IVPB SCH (09:00)
[2023-01-17] MEDS ORDERED: AZITHROMYCIN IV 500 MG in NA CHLORIDE 0.9% 250 ML IVPB SCH (09:00)
[2023-01-17 09:02] LABS: Blood Morphology Comment NOT SEEN (NOT SEEN); Platelet Estimate ADEQ
--- NOTE | 2023-01-17 15:32 | P.PN ---
Date of Service: 01/17/23 Subjective Pt doing well with no new complaints. Still having some pain in the neck region. No evidence of meningitis on LP. MRI negative. Physical Examination - Vitals reviewed -Physical Exam General: Alert, In no apparent distress, Oriented x3, Cooperative Respiratory: Diminished; decreased breath sounds LLL Cardiovascular: Regular rate/rhythm, Normal S1 S2 Gastrointestinal: Normal bowel sounds, No tenderness Musculoskeletal: No tenderness Neurological: Normal speech, Normal tone, Normal affect Assessment and Plan - Assessment 1. Pneumonia 2. DM2 3. Torticollis 4. Anemia of chronic disease - Plan --Pneumonia. Blood cultures pending. Continue antibiotics and O2 therapy as needed. Outpt follow-up for complete resolution --Headache. Tylenol as needed. --DM2 with neuropathy. BS monitoring with sliding scale insulin. Strict BS control. Continue gabapentin for his neuropathy --Hyperlipidemia. Continue statin. --Leukocytosis. Likely secondary to pneumonia. Continue antibiotics. Will reassess levels in a.m. --Anemia of chronic disease. H&H stable. Will continue to monitor hemoglobin and transfuse if less than 7.0. --DVT prophylaxis with Lovenox subQ.
[2023-01-17] MEDS: TIZANIDINE 4 MG TABLET PO SCH ×2 (15:41→20:04)
[2023-01-17] MEDS ORDERED: Levofloxacin 750mg IV 750 MG/150 ML BAG IV SCH (16:00)
[2023-01-17] MEDS: ENOXAPARIN 40 MG/0.4 ML SQ SCH (16:52)
[2023-01-17 21:44] VITALS: O2SAT 97
[2023-01-18 06:29] LABS: Hematocrit 34.8 % (39.6-49.0); Lymphocytes % 10.9 % (15.3-44.8); MCV 88.4 fL (80-100); MPV 7.1 fL (7.6-11.3); RBC Red Blood Cell Count 3.94 M/uL (4.33-5.43)
[2023-01-18 06:47] LABS: Albumin 2.5 g/dL (3.4-5.0); Bilirubin Total 0.3 mg/dL (0.2-1.0); Potassium 3.7 mmol/L (3.5-5.1); Protein, Total 6.9 g/dL (6.4-8.2)
[2023-01-18] MEDS: INSULIN -REGULAR HUMAN 50 UNIT/0.5 ML ML SQ SCH (07:30)
--- NOTE | 2023-01-18 07:46 | RAD REPORT ---
EXAM DESCRIPTION: RAD - Chest Single View - 01/18/2023 5:28 am CLINICAL HISTORY: pneumonia COMPARISON: Chest Single View dated 01/16/2023; Chest Pa And Lat (2 Views) dated 05/27/2021; CHEST SING LE VIEW dated 09/07/2006 FINDINGS: Lines: None. Lungs: No evidence of edema or pneumonia. Pleural: No significant pleural effusions or pneumothorax. Cardiac: The heart size is within normal limits. Mediastinum: Within normal limits. Bones: No acute fractures. Other: None IMPRESSION: No acute cardiopulmonary disease.
[2023-01-18 08:15] VITALS: BP 129/76; TEMP 97.2
[2023-01-18 08:43] LABS: Blood Morphology Comment NOT SEEN (NOT SEEN); Platelet Estimate ADEQ
[2023-01-18] MEDS: TIZANIDINE 4 MG TABLET PO SCH (09:00)
[2023-01-18] MEDS: ASPIRIN 81 MG CHEWABLE TABLET PO SCH (09:00)
[2023-01-18] MEDS: ENOXAPARIN 40 MG/0.4 ML SQ SCH (09:00)
[2023-01-18] MEDS: ROSUVASTATIN 10 MG TAB PO SCH (09:00)
[2023-01-18] MEDS: GABAPENTIN 300 MG CAP PO SCH (09:00)
== END 2023-01-18 09:18 | disposition home or self-care (01) | DRG 195 ==
LOC: ER 07:04 → ERHOLD 13:59 → 4TH 21:24
PROVIDERS: ADMIT Hospitalist; ATTEND Hospitalist
PROC: 009U3ZX Drainage of Spinal Canal, Percutaneous Approach, Diagnostic (ICD-10-PCS; principal; 2023-01-16)
DX: J18.9 Pneumonia, unspecified organism (principal); E11.40 Type 2 diabetes mellitus with diabetic neuropathy, unspecified; R51.9 Headache, unspecified; M43.6 Torticollis; D63.8 Anemia in other chronic diseases classified elsewhere; E78.5 Hyperlipidemia, unspecified; M47.812 Spondylosis without myelopathy or radiculopathy, cervical region; Z79.899 Other long term (current) drug therapy; Z20.822 Contact with and (suspected) exposure to COVID-19
CPT/HCPCS: 36415; 62270; 70450; 71045; 72125; 72141; 74177; 80048; 80053; 80061; 80076; 81003; 82945; 82947; 83036; 83605; 83690; 83735; 83880; 84100; 84145; 84157; 84439; 84443; 84484; 85025; 85610; 87040; 87070; 87811; 89050; 93005; 96374; 96375; 99284; J0456; J0696; J1100; J1650; J1815; J2001; J2405; J3370; J7030; J7050; Q9967